=== PATIENT | male | born 1985 | race Caucasian/White ===

== ENCOUNTER 2023-05-09 00:09 | Emergency (ER) | payer BC, OTHER ==
[2023-05-09] MEDS ORDERED: methylPREDNISolone NA SUCC 125 MG/2 ML VIAL IVPUSH ONE (00:17)
[2023-05-09] MEDS ORDERED: FAMOTIDINE 20 MG/50 ML IVPB 20 MG/50 ML MG IVPB ONE ×2 (00:18→00:20)
[2023-05-09] MEDS ORDERED: methylPREDNISolone NA SUCC 125 MG/2 ML VIAL ONE (00:20)
[2023-05-09 00:33] VITALS: RESP 16; TEMP 100.3; BMI 34.2
[2023-05-09 03:50] VITALS: BP 117/83; PULSE 93
== END 2023-05-09 04:01 | disposition home or self-care (01) ==
LOC: FER 00:09
PROC: 3E033GC Introduction of Other Therapeutic Substance into Peripheral Vein, Percutaneous Approach (ICD-10-PCS; principal; 2023-05-09)
PROC: 3E033GC Introduction of Other Therapeutic Substance into Peripheral Vein, Percutaneous Approach (ICD-10-PCS; 2023-05-09)
PROC: 3E033GC Introduction of Other Therapeutic Substance into Peripheral Vein, Percutaneous Approach (ICD-10-PCS; 2023-05-09)
DX: R22.1 Localized swelling, mass and lump, neck (principal); T78.3XXA Angioneurotic edema, initial encounter
CPT/HCPCS: 99284-25